=== PATIENT | female | born 1945 | race Native Hawaiian/Other Pacific Islander ===

== ENCOUNTER 2016-04-10 10:58 | Outpatient (CLI) | payer OTHER ==
[~2016-04-10 10:58] MED LIST: AMLO5TAB PO; ASPIRIN 8181 MG PO; BACLOFEN10 MG PO; CLON1TAB18 PO; DIPH50CA30 PO; EQ LAXATIVE25 MG OR; ESTR1TAB13 PO; ESTRACE2 MG PO; FENT25DI TD; FORTAMET500 MG PO; GABA300C2 PO; GLIM4TAB PO; GRALISE600 MG OR; HUMALOG100 MG/ML SC; HYDR5TAB9 PO; INSUINJP SC; LIPITOR20 MG PO; LISI10TA11 PO; MECLIZINE25 MG OR; NABUMETONE500 MG PO; OMEPRAZOLE40 MG PO; PAROXETIN ER12.5 MG OR; PAROXETINE20 MG OR; SIMV20TA2 PO; TRAZ50TA36 PO; VITAMIN D H1000 UNIT OR; [UNRECOGNIZED DRUG - OTHER] PO
== END 2016-04-10 23:43 | disposition home or self-care (01) ==
LOC: RESP 10:58
DX: R55 Syncope and collapse (principal)

== ENCOUNTER 2016-06-12 13:07 | Outpatient (CLI) | payer OTHER ==
[2016-06-12 14:01] LABS: PLATELET COUNT 238 K/uL (152-353)
[2016-06-12 14:03] LABS: POTASSIUM 4.1 mmol/L (3.6-5.2)
== END 2016-06-12 19:18 | disposition home or self-care (01) ==
LOC: LAB 13:07
PROVIDERS: Nurse Practitioner Family
DX: I10 Essential (primary) hypertension (principal); E11.9 Type 2 diabetes mellitus without complications; F41.8 Other specified anxiety disorders; M81.0 Age-related osteoporosis without current pathological fracture; G40.909 Epilepsy, unspecified, not intractable, without status epilepticus
CPT/HCPCS: 80053; 80061; 83036; 84436; 84443; 85027

== ENCOUNTER 2017-05-07 15:15 | Outpatient (CLI) | payer OTHER ==
[2017-05-07 16:22] LABS: PLATELET COUNT 233 K/uL (152-353)
[2017-05-07 16:49] LABS: POTASSIUM 4.5 mmol/L (3.6-5.2)
== END 2017-05-07 22:14 | disposition home or self-care (01) ==
LOC: LAB 15:15
PROVIDERS: Nurse Practitioner Family
DX: I10 Essential (primary) hypertension (principal); E11.9 Type 2 diabetes mellitus without complications; F41.8 Other specified anxiety disorders; E87.6 Hypokalemia
CPT/HCPCS: 80053; 80061; 83036; 84436; 84443; 85027